=== PATIENT | female | born 2000 | race Caucasian/White ===

== ENCOUNTER 2025-01-25 05:06 | Inpatient (IN) | payer BC ==
[~2025-01-25 05:06] MED LIST: Sodium Chloride 0.9% 10 ML Syringe FLUSH PRN
[2025-01-25] MEDS ORDERED: Sodium Chloride 0.9% 10 ML Syringe FLUSH PRN (05:19)
[2025-01-25 05:44] LABS: BASOPHILS ABSOLUTE AUTO 0.1 K/mm3 (0.0-0.2); BASOPHILS PERCENT AUTO 0.7 % (0.0-1.0); EOSINOPHILS ABSOLUTE AUTO 0.2 K/mm3 (0.0-0.4); EOSINOPHILS PERCENT AUTO 2.2 % (0.0-6.0); IMMATURE GRAN ABSOLUTE AUTO 0.03 K/mm3 (0.00-0.05); IMMATURE GRAN PERCENT AUTO 0.4 % (0.0-0.4); LYMPHOCYTES ABSOLUTE AUTO 2.9 K/mm3 (1.0-4.8); LYMPHOCYTES PERCENT AUTO 36.6 % (24.0-44.0); MEAN PLATELET VOLUME 10.4 fl (9.4-12.3); MONOCYTES ABSOLUTE AUTO 0.7 K/mm3 (0.0-0.8); MONOCYTES PERCENT AUTO 9.0 % (0.0-8.0); NEUTROPHILS ABSOLUTE AUTO 4.1 K/mm3 (1.8-7.7); NEUTROPHILS PERCENT AUTO 51.1 % (41.0-71.0); NRBC ABSOLUTE 0.00 (0.00-0.02); NRBC PERCENT 0.0 % (0.0-0.2); PLATELET COUNT,PLT 203 K/mm3 (150-400); RED BLOOD CELL COUNT 3.98 M/mm3 (4.10-5.30); WHITE BLOOD CELL COUNT,WBC 8.03 K/mm3 (3.9-11.3)
[2025-01-25] MEDS: Lactated Ringers 1,000 ML IV SCH ×2 (06:00→07:31)
[2025-01-25] MEDS: Terbutaline 1 MG/ML SDV SUBCUT ONE (06:56)
[2025-01-25] MEDS ORDERED: Morphine PF 10 MG/10 ML SDV ONE (07:10)
[2025-01-25] MEDS ORDERED: Phenylephrine 1% 10 MG/ML SDV ONE (07:17)
[2025-01-25] MEDS ORDERED: Ondansetron 4 MG/2 ML SDV ONE (07:17)
[2025-01-25] MEDS ORDERED: dexmedeTOMIDine HCl 200 MCG/2 ML SDV ONE (07:17)
[2025-01-25] MEDS: Citric Acid/Sodium Citrate Solution 30 ML Cup PO ONE (07:32)
[2025-01-25] MEDS ORDERED: ePHEDrine 50 MG/ML SDV ONE (07:59)
[2025-01-25] MEDS ORDERED: Oxytocin/0.9 % Sodium Chloride 30 UNIT/500 ML BAG IV ONE (08:20)
[2025-01-25] MEDS ORDERED: Sodium Chloride 0.9% 50 ML SDV ONE (08:26)
[2025-01-25] MEDS ORDERED: Ropivacaine 0.5% 5 MG/ML 30 ML SDV ONE (08:26)
[2025-01-25] MEDS ORDERED: Ketorolac 30 MG/ML SDV ONE (08:45)
[2025-01-25] MEDS ORDERED: diphenhydrAMINE 50 MG/ML SDV IVPUSH PRN ×2 (09:21→10:06)
[2025-01-25] MEDS ORDERED: fentaNYL 100 MCG/2 ML SDV IVPUSH PRN (09:21)
[2025-01-25] MEDS ORDERED: Ondansetron 4 MG/2 ML SDV IVPUSH PRN (09:21)
[2025-01-25] MEDS ORDERED: Acetaminophen/oxyCODONE 325-5 MG Tab PO PRN ×2 (10:06)
[2025-01-25] MEDS ORDERED: ePHEDrine 50 MG/ML SDV IVPUSH PRN (10:06)
[2025-01-25] MEDS ORDERED: Naloxone 0.4 MG/ML SDV IVPUSH PRN (10:06)
[2025-01-25] MEDS: Ketorolac 30 MG/ML SDV IVPUSH SCH (14:39)
[2025-01-26] MEDS: Sodium Chloride 0.9% 10 ML Syringe FLUSH SCH (20:41)
[2025-01-26] MEDS: Ketorolac 30 MG/ML SDV IVPUSH SCH (20:42)
== END 2025-01-27 15:00 | disposition home or self-care (01) | DRG 540 ==
LOC: JD.OB 05:06 → OBSVTOIN 05:06 → JD.OB 08:20
PROVIDERS: ADMIT Obstetrics & Gynecology; ATTEND Obstetrics & Gynecology
PROC: 10S0XZZ Reposition Products of Conception, External Approach (ICD-10-PCS; 2025-01-25)
PROC: 4A1HXCZ Monitoring of Products of Conception, Cardiac Rate, External Approach (ICD-10-PCS; 2025-01-25)
PROC: 10D00Z1 Extraction of Products of Conception, Low, Open Approach (ICD-10-PCS; principal; 2025-01-25 07:30)
DX: O32.1XX0 Maternal care for breech presentation, not applicable or unspecified (principal); Z3A.39 39 weeks gestation of pregnancy; Z37.0 Single live birth
CPT/HCPCS: 36415; 59025; 59412; 85025; 86592; 86850; 86900; 86901; A9270-GY; J0665; J0690; J1885; J2274; J2371; J2405; J2765; J2795; J3105; J3490; J7120; J7121; J7999